=== PATIENT | female | born 1950 | race Caucasian/White ===

== ENCOUNTER 2020-05-21 06:36 | Day surgery (SDC) | payer MEDICARE ==
[~2020-05-21] VITALS: Ht 152.4 cm; Wt 61.0 kg
[~2020-05-21 06:36] MED LIST: ATOR20 PO; Aspir 8181 MG PO; CODACE30; METF500 PO; METO25ER PO; Prinivil10 MG PO
[2020-05-21] MEDS ORDERED: ERGO400 PO (07:02)
[2020-05-21] MEDS ORDERED: TOCO1000 PO (07:02)
== END 2020-05-21 08:45 | disposition home or self-care (01) ==
LOC: ORSCSDS 06:36
PROVIDERS: Ophthalmology
PROC: 08RJ3JZ Replacement of Right Lens with Synthetic Substitute, Percutaneous Approach (ICD-10-PCS; principal; 2020-05-21 08:00)
DX: H25.11 Age-related nuclear cataract, right eye (principal); E11.36 Type 2 diabetes mellitus with diabetic cataract; I10 Essential (primary) hypertension; Z79.82 Long term (current) use of aspirin; Z79.84 Long term (current) use of oral hypoglycemic drugs; Z79.899 Other long term (current) drug therapy
CPT/HCPCS: 82947; J2001; J2704; J3010; J3301; J7040; V2632

== ENCOUNTER 2020-07-09 07:41 | Day surgery (SDC) | payer MEDICARE ==
[~2020-07-09] VITALS: Ht 152.4 cm; Wt 61.8 kg
[~2020-07-09 07:41] MED LIST changes: +ERGO400 PO; +TOCO1000 PO
--- NOTE | 2020-07-09 08:45 | NUR ---
07/09/20 0845 Corinne Rodriguez 0800 PLACED 1 DROP OF TETRACAINE PER ORDERS. [facility] [place] 0802 PLACED PLEDGET IN LEFT EYE PER DR HARPER ORDERS. [facility] [place]
== END 2020-07-09 10:05 | disposition home or self-care (01) ==
LOC: ORSCSDS 07:41
PROVIDERS: Ophthalmology
PROC: 08RK3JZ Replacement of Left Lens with Synthetic Substitute, Percutaneous Approach (ICD-10-PCS; principal; 2020-07-09 09:15)
DX: H25.12 Age-related nuclear cataract, left eye (principal); I10 Essential (primary) hypertension; J44.9 Chronic obstructive pulmonary disease, unspecified; Z87.891 Personal history of nicotine dependence; Z79.84 Long term (current) use of oral hypoglycemic drugs; Z79.899 Other long term (current) drug therapy; E11.9 Type 2 diabetes mellitus without complications
CPT/HCPCS: 82947; A9270; J2001; J2250; J3010; J3301; J7040; V2632

== ENCOUNTER → 2022-11-23 | Outpatient (CLI) | payer MEDICARE ==
[2022-11-23 16:39] LABS: Microalb/Creat Ratio UR, Rand Unable to Calculate mg/g (0.000-30.000); Microalbumin, Random Urine <5.000 mg/L (0.000-20.000)
== END | disposition home or self-care (01) ==
LOC: LAB SHORT 10:41 → LAB 10:41
PROVIDERS: Nurse Practitioner Family
DX: E11.9 Type 2 diabetes mellitus without complications (principal)
CPT/HCPCS: 82043; 82570